=== PATIENT | female | born 1925 | race Caucasian/White ===

== ENCOUNTER → 2016-08-11 | Outpatient (CLI) | payer MEDICARE, BC ==
[~2016-08-11] MED LIST: CALCI PO; DILANTIN 100MG100 MG PO; ESSENTIAL DAIL1 EACH PO; MUCINEX 60600 MG/TA1 PO; OMEGA 3 1,0001 EACH PO; ZITHROMAX Z PA250 MG PO
== END ==
LOC: LAB 12:58
DX: R94.01 Abnormal electroencephalogram [EEG] (principal)

== ENCOUNTER 2016-08-30 08:46 | Emergency (ER) | payer MEDICARE, BC ==
[2016-08-30] MEDS ORDERED: OMEGA 3 1,0001 EACH PO (08:48)
[2016-08-30] MEDS ORDERED: ESSENTIAL DAIL1 EACH PO (08:48)
[2016-08-30] MEDS ORDERED: DILANTIN 100MG100 MG PO (08:48)
[2016-08-30] MEDS ORDERED: CALCI PO (08:49)
[2016-08-30] MEDS ORDERED: ZITHROMAX Z PA250 MG PO (10:23)
[2016-08-30] MEDS ORDERED: MUCINEX 60600 MG/TA1 PO (10:23)
== END 2016-08-30 10:35 | disposition home or self-care (01) ==
LOC: ED 08:46
DX: J18.9 Pneumonia, unspecified organism (principal); B34.9 Viral infection, unspecified; J06.9 Acute upper respiratory infection, unspecified; R42 Dizziness and giddiness